=== PATIENT | male | born 1960 | race Caucasian/White ===

== ENCOUNTER 2016-12-10 08:33 | Emergency (ER) | payer BC ==
[2016-12-10 09:04] VITALS: BP 126/100; PULSE 67; RESP 18; TEMP 97.7; O2SAT 95
--- NOTE | 2016-12-10 09:08 | UCPHY ---
H & P Time Seen by Provider: 12/10/16 09:07 Patient Type: Established HPI/ROS: Chief complaint. Back pain HPI. 56-year-old male with left upper back pain that he feels is muscular and began 3 days ago after doing bench presses. The pain is on the inside of the left scapula. It is worse with movement. Occasionally has some radiation to the left shoulder and arm but it is mainly centered about the left scapula. No discrete injury while doing bench presses. He has been using using rollers and ball cyst and stretches to try to relieve the symptoms. Heat seems to help and then worse again with movement. No anterior chest discomfort, no trouble breathing. ROS Constitutional. no fever/chills, no weakness Eyes. no problems with vision ENT. no sore throat, no nasal drainage Cardiovascular. no chest pain Respiratory. no shortness of breath, no cough Abdominal. no abdominal pain, no nausea/vomiting, no diarrhea . no problems urinating MS. Left upper back pain Skin. no rash Lymph. no swollen glands Neuro. no headache, no dizziness, no difficulty walking or with speech Past Medical/Surgical History: Healthy Social History: , nonsmoker, no alcohol Smoking Status: Former smoker Physical Exam: General Appearance: Alert well-developed male mild distress vital signs stable Eyes: Pupils equal and round no pallor or injection. ENT, Mouth: Mucous membranes are moist. Respiratory: There are no retractions, lungs are clear to auscultation. Cardiovascular: Regular rate and rhythm. Gastrointestinal: Abdomen is soft and nontender, no masses, bowel sounds normal. Neurological: Awake and alert, sensory and motor exams grossly normal. Skin: Warm and dry, no rashes. Musculoskeletal: Neck is supple nontender. Tenderness to the muscles on the medial side of the left scapula specially inferior along the scapula. It is tender to palpation reproduces his pain. No obvious swelling deformity. Shoulder is normal full range of motion. Distal motor vascular sensitivity is intact Extremities symmetrical, full range of motion. Psychiatric: Patient is oriented X 3, there is no agitation. Constitutional: Initial Vital Signs Temperature (C) 36.5 C 12/10/16 09:02 Heart Rate 67 12/10/16 09:02 Respiratory Rate 18 12/10/16 09:02 Blood Pressure 126/100 H 12/10/16 09:02 O2 Sat (%) 95 12/10/16 09:02 O2 Delivery Mode Room Air Allergies/Adverse Reactions: No Known Allergies Allergy (Unverified 12/10/16 09:01) Home Medications: Medication Instructions Recorded CYCLOBENZAPRINE HCL [Flexeril] 5 mg PO TIDPRN PRN #10 tab 12/10/16 Hydrocodone/APAP 5/325 [[place] 1 each PO Q4-6PRN PRN #14 tab 12/10/16 5/325 (*)] Medical Decision Making ED Course/Re-evaluation: Patient remained stable. Patient and I discussed treatment plan including criteria for return importance of follow-up further evaluation. He expresses understanding and agreement Differential Diagnosis: This certainly appears to be muscular. It is in the typical location for muscular upper back pain. It is tender to palpation recreating his symptoms. I considered heart and lung etiology but he has no symptoms to this area. Departure - Departure Disposition: Home, Routine, Self-Care Clinical Impression: Acute thoracic back pain Qualifiers: Back pain laterality: left Qualified Code(s): M54.6 - Pain in thoracic spine Condition: Good Instructions: Thoracic Back Strain (ED) Additional Instructions: Heat to sore area 2-3 times daily. Continue Aleve as prescribed. Hydrocodone in addition for pain. Flexeril as muscle relaxer. Easy activity. Return for worsening symptoms including chest discomfort or trouble breathing. Re- evaluation by your regular physician in 2-3 days if not improving Referrals: NONE *PRIMARY CARE P,. [Primary Care Provider] - As per Instructions Jeffrey Welsh MD [[facility] [place] Provider] - 2-3 days, if not improved Prescriptions: CYCLOBENZAPRINE HCL [Flexeril] 5 mg PO TIDPRN PRN #10 tab PRN Reason: Spasms Hydrocodone/APAP 5/325 [[place] 5/325 (*)] 1 each PO Q4-6PRN PRN #14 tab PRN Reason: Pain, Moderate - PQRS PQRS Measurement: 134: Depression screening and followup, PRIME MD-PHQ2 (12 years and older) Over the last 2 weeks, how often have you been bothered by any of the following problems? 1. Feeling down, depressed, or hopeless? 2. Little interest or pleasure in doing things? Patient answered no to both 1 and 2 130: Documentation of medications. Reviewed all patient medications, doses, route and frequency. 226: Do you smoke? No.
== END 2016-12-10 09:31 | disposition home or self-care (01) ==
LOC: CED 08:33
DX: M54.6 Pain in thoracic spine (principal); Z87.891 Personal history of nicotine dependence
CPT/HCPCS: 99214-PO; G0463-PO

== ENCOUNTER 2017-09-08 11:34 | Day surgery (SDC) | payer BC ==
[2017-09-08] MEDS ORDERED: fentaNYL 100 MCG/2 ML INJ ONE (12:20)
[2017-09-08] MEDS ORDERED: NALOXONE HCL 0.4 MG/ML INJ ONE (12:20)
[2017-09-08] MEDS ORDERED: MIDAZOLAM 2 MG/2 ML VIAL ONE (12:20)
[2017-09-08] MEDS ORDERED: FLUMAZENIL 0.5 MG/5 ML MDV IVP ONE (12:20)
--- NOTE | 2017-09-08 12:53 | PDGENHP ---
History & Physical Chief Complaint: Numbness,coolness, pain in ring and middle finger of right hand History of Present Illness: 6 weeks Pertinent Past, Social, Family History: Allergies: none. Father age 36 prolonged QT syndrome. Relevant Physical Exam: Pulses R U B C F P PT DP. right 4 0 4 4 4 4 4 4. left 4 4 4 4 4 4 4 4. capillary refill 1 sec to all fingers except right ring and middle finger 2 seconds. Cardiorespiratory Assessment: Heart: RRR, 60 bpm, no murmur. Lungs: clear to auscultation
--- NOTE | 2017-09-08 12:56 | PDPROPOC ---
Sedation Plan of Care Sedation Plan of Care: vital signs stable, mental status noted, patient educated of risks, benefits, alternatives, patient can tolerate sedation ASA Classification: ASA 1 Planned drugs: fentanyl, midazolam Mallampati Score: Class 1 Mallampati Reference Image: Patient passed 3-3-2 rule?: Yes
[2017-09-08] MEDS ORDERED: NITROGLYCERIN/D5W 50 MG/250 ML BOTTLE IV ONE (14:06)
[2017-09-08] MEDS ORDERED: IOPAMIDOL (ISOVUE-300) 100 ML BTL ONE (14:06)
[2017-09-08] MEDS ORDERED: ONDANSETRON 4 MG/2 ML VIAL IVP PRN (14:20)
[2017-09-08] MEDS ORDERED: OXYCODONE/APAP 5/325 TAB PO PRN (14:20)
--- NOTE | 2017-09-08 14:20 | PDRADPN ---
Radiology Procedure Note Date of Procedure: 09/08/17 Radiologist: Anthony Copeland Anesthesia: IV Sedation Pre-op Diagnosis: Occluded right ulnar artery Post-op Diagnosis: Same Indication: Mild ischemia of long and ring fingers of right hand Procedure: Arteriography of RUE Finding(s): Distal occlusion of right ulnar artery. Inf/Abcess present in the surg proc area at time of surgery?: No EBL: Minimal Complications: None.
[2017-09-08] MEDS ORDERED: NS 1,000 ML IV SCH ×2 (14:30→14:45)
[2017-09-08 14:31] VITALS: PULSE 61; RESP 16; TEMP 98.6
[2017-09-08] MEDS ORDERED: MIDAZOLAM 2 MG/2 ML VIAL IVP PRN (14:37)
[2017-09-08] MEDS ORDERED: NALOXONE HCL 0.4 MG/ML INJ IVP PRN (14:37)
[2017-09-08] MEDS ORDERED: FLUMAZENIL 0.5 MG/5 ML MDV IVP PRN (14:37)
[2017-09-08] MEDS ORDERED: GLUCAGON HCL 1 MG VIAL IVP PRN (14:37)
[2017-09-08] MEDS ORDERED: HEPARIN 10,000 UNIT/10 ML MDV IVP PRN (14:37)
[2017-09-08] MEDS ORDERED: fentaNYL 100 MCG/2 ML INJ IVP PRN (14:37)
[2017-09-08] MEDS ORDERED: MEPERIDINE 25 MG/ML SYR IVP PRN (14:37)
[2017-09-08] MEDS ORDERED: PROTAMINE SULFATE 50 MG/5 ML VIAL IVP PRN (14:37)
[2017-09-08] MEDS ORDERED: ALTEPLASE 2 MG VIAL IVP PRN (14:37)
[2017-09-08 17:04] VITALS: BP 135/85; O2SAT 92
[2017-09-08] MEDS ORDERED: LR 1,000 ML IV ONE (17:28)
== END 2017-09-08 17:15 | disposition home or self-care (01) ==
LOC: FIMAGING 11:34
PROVIDERS: ATTEND Surgery
PROC: 03H833Z Insertion of Infusion Device into Left Brachial Artery, Percutaneous Approach (ICD-10-PCS; principal; 2017-09-08 14:20)
DX: I74.2 Embolism and thrombosis of arteries of the upper extremities (principal); I99.8 Other disorder of circulatory system
CPT/HCPCS: 36217; 75710; 99152; 99153; C1769; C1887; C1894; C1760; J1644; J2250; J2310; J3010; Q9967